=== PATIENT | female | born 1990 | race Caucasian/White ===

== ENCOUNTER 2020-02-19 19:08 | Emergency (ER) | payer MEDICAID, OTHER ==
[~2020-02-19] VITALS: Ht 167.6 cm; Wt 90.7 kg
[2020-02-19 20:00] VITALS: BP 126/69
[2020-02-19 20:30] LABS: Urine Bacteria NONE SEEN /hpf (None Seen); Urine Blood Negative /uL (Negative); Urine Mucus FEW (None Seen); Urine Specific Gravity 1.022 (1.001-1.035); Urine WBC 8 /hpf (0 - 5)
== END 2020-02-19 20:11 | disposition home or self-care (01) ==
LOC: ER 19:08
DX: R10.2 Pelvic and perineal pain (principal)
CPT/HCPCS: 81001; 81025

== ENCOUNTER 2020-03-02 23:21 | Emergency (ER) | payer MEDICAID ==
[~2020-03-02] VITALS: Ht 167.6 cm; Wt 90.7 kg
[2020-03-03 01:19] VITALS: BP 117/77
== END 2020-03-03 01:40 | disposition home or self-care (01) ==
LOC: ER 23:23
DX: S20.213A Contusion of bilateral front wall of thorax, initial encounter (principal); V86.59XA Driver of other special all-terrain or other off-road motor vehicle injured in nontraffic accident, initial encounter; Y93.89 Activity, other specified; Y92.89 Other specified places as the place of occurrence of the external cause; Y99.8 Other external cause status
CPT/HCPCS: 71045; 72131

== ENCOUNTER 2020-03-27 16:59 | Emergency (ER) | payer MEDICAID ==
[~2020-03-27] VITALS: Ht 167.6 cm; Wt 90.7 kg
[2020-03-27 18:35] LABS: Urine Bacteria NONE SEEN /hpf (None Seen); Urine Blood Negative /uL (Negative); Urine Mucus FEW (None Seen); Urine Specific Gravity 1.017 (1.001-1.035); Urine WBC 2 /hpf (0 - 5)
[2020-03-27 19:57] VITALS: BP 105/66
[2020-03-27] MEDS ORDERED: ONDANSETRON ODT 4 MG TAB PO ONE (20:00)
[2020-03-27] MEDS ORDERED: SUMAtriptan SUCCINATE 6 MG/0.5 ML VL SC ONE (20:00)
== END 2020-03-27 20:52 | disposition home or self-care (01) ==
LOC: ER 16:59
DX: G43.909 Migraine, unspecified, not intractable, without status migrainosus (principal); Z32.02 Encounter for pregnancy test, result negative; R11.2 Nausea with vomiting, unspecified
CPT/HCPCS: 81001; 81025; 96372; 99283; J3030; Q0162

== ENCOUNTER 2020-04-03 15:58 | Emergency (ER) | payer MEDICAID ==
[~2020-04-03] VITALS: Ht 167.6 cm; Wt 90.7 kg
[2020-04-03 16:11] VITALS: BP 113/57
== END 2020-04-03 17:13 | disposition home or self-care (01) ==
LOC: ER 15:58
DX: S40.022A Contusion of left upper arm, initial encounter (principal); X58.XXXA Exposure to other specified factors, initial encounter; Y93.89 Activity, other specified; Y92.89 Other specified places as the place of occurrence of the external cause; Y99.8 Other external cause status

== ENCOUNTER 2020-08-24 00:57 | Emergency (ER) | payer MEDICAID ==
[~2020-08-24] VITALS: Ht 167.6 cm; Wt 83.9 kg
[2020-08-24 00:58] VITALS: BP 102/73
== END 2020-08-24 03:17 | disposition left against medical advice (07) ==
LOC: ER 00:59
DX: S50.11XA Contusion of right forearm, initial encounter (principal); Z53.21 Procedure and treatment not carried out due to patient leaving prior to being seen by health care provider; W50.3XXA Accidental bite by another person, initial encounter; Y93.72 Activity, wrestling; Y92.89 Other specified places as the place of occurrence of the external cause; Y99.8 Other external cause status

== ENCOUNTER 2020-09-08 11:43 | Emergency (ER) | payer MEDICAID ==
[~2020-09-08] VITALS: Ht 167.6 cm; Wt 83.9 kg
[2020-09-08 12:22] LABS: Urine Bacteria NONE SEEN /hpf (None Seen); Urine Blood 3+ /uL (Negative); Urine Specific Gravity 1.006 (1.001-1.035); Urine WBC 23 /hpf (0 - 5)
[2020-09-08 12:32] VITALS: BP 118/78
== END 2020-09-08 17:41 | disposition home or self-care (01) ==
LOC: ER 11:43
DX: N39.0 Urinary tract infection, site not specified (principal)
CPT/HCPCS: 36415; 76830; 76856; 81001; 81025; 84702